=== PATIENT | male | born 1970 | race Caucasian/White ===

== ENCOUNTER → 2022-03-20 17:29 | Outpatient (CLI) | payer OTHER, SELFPAY ==
--- NOTE | ~2022-03-20 | XR_ITS ---
EXAMINATION: XR chest 2V Exam Date/Time: 03/20/2022 17:36 CONDENSER TUBE TENDER HISTORY: R07.81 - Pleurodynia Comparison: None available. RESULT: Lines, tubes, and devices: None. Lungs and pleura: Low lung volumes with crowding. Linear bibasilar atelectasis/scar. Cardiomediastinal silhouette: Unremarkable. Other: No acute osseous or upper abdominal finding. IMPRESSION: No acute cardiopulmonary process. Reviewed, dictated and finalized at location K. ENSER TUBE TENDER
== END ==
PROVIDERS: PCP Physician Assistant; Visit Provider Physician Assistant
DX: R07.81 Pleurodynia (principal)
CPT/HCPCS: 71046

== ENCOUNTER 2022-03-29 09:26 | Outpatient (CLI) | payer OTHER, SELFPAY ==
--- NOTE | ~2022-03-29 | US_ITS ---
US right upper quadrant DATE: 03/29/2022 10:13 INDICATION: Right upper quadrant abdominal pain TECHNIQUE: Real-time imaging of liver, pancreas, gallbladder COMPARISON: None FINDINGS: The pancreas is partially obscured by bowel gas. No hepatic space-occupying mass lesion is detected. Normal hepatopedal portal venous flow direction. There are filling defects of the gallbladder neck with posterior shadowing consistent with cholelithi asis. There is sludge in the gallbladder. There is prominent thickening of the gallbladder wall up to 1 cm. Findings may be consistent with acute cholecystitis. Positive sonographic Jeff's sign. IMPRESSION: Cholelithiasis and gallbladder wall thickening, positive sonographic Jeff sign, suggest ing acute cholecystitis Dr. Daley telephoned the report on 03/29/2022 1138 hours to [phone] voicemail, with request for r eturn phone call to confirm receipt. Reviewed, dictated and finalized at Location A. Reviewed, dictated and finalized at location B. RETTE VENDOR IMPRESSION: Cholelithiasis and gallbladder wall thickening, positive sonographi c Jeff sign, suggesting acute cholecystitis Dr. Daley telephoned the report on 03/29/2022 1138 hours to [phone] voicema il, with request for return phone call to confirm receipt.
== END 2022-03-29 09:27 | disposition home or self-care (01) ==
PROVIDERS: PCP Family Medicine Adolescent Medicine; Visit Provider Physician Assistant
DX: R10.11 Right upper quadrant pain (principal); K80.20 Calculus of gallbladder without cholecystitis without obstruction
CPT/HCPCS: 76705

== ENCOUNTER 2022-04-27 10:05 | Outpatient (CLI) | payer BC, SELFPAY ==
--- NOTE | 2022-04-27 10:14 | ECG_ITS ---
Measurements Intervals [place] Rate: 81 P: 62 OR: 150 QRS: 18 QRSD: 99 T: 11 QT: 369 QTc: 430 Interpretive Statements SINUS RHYTHM BORDERLINE T WAVE ABNORMALITY- INFERIOR LEADS BASELINE ARTIFACT- I, II, III, AVR, AVL, AVF BORDERLINE ECG NO PREVIOUS ECG AVAILABLE FOR COMPARISON Electronically Signed On 04-27-2022 10:56:54 DIRECTOR COMMUNICATIONS by Tuan Porter D.O.
[2022-04-27 11:33] LABS: Anion Gap 6 mmol/L (8-16); Blood Urea Nitrogen 14 mg/dL (9-20); Calcium 8.7 mg/dL (8.4-10.2); Carbon Dioxide 29 mmol/L (22-30); Chloride 104 mmol/L (98-107); Estimated Glomerular Filt Rate > 60; Glucose 128 mg/dL (65-110); Potassium 4.5 mmol/L (3.4-5.0); Sodium 139 mmol/L (137-145)
[2022-04-27 11:35] LABS: Alanine Aminotransferase 24 U/L (6-50); Albumin Level 4.3 g/dL (3.5-5.1); Alkaline Phosphatase 98 U/L (38-126); Amylase 79 U/L (30-110); Aspartate Amino Transferase 23 U/L (17-59); Bilirubin,Total 0.7 mg/dL (0.2-1.3); Lipase 44 U/L (23-300)
== END 2022-04-27 10:06 | disposition home or self-care (01) ==
LOC: ANHSURGERY 10:08
PROVIDERS: Anesthesiology; PCP Family Medicine Adolescent Medicine; Visit Provider Surgery
DX: K80.00 Calculus of gallbladder with acute cholecystitis without obstruction (principal); E11.9 Type 2 diabetes mellitus without complications; Z01.818 Encounter for other preprocedural examination; R94.31 Abnormal electrocardiogram [ECG] [EKG]
CPT/HCPCS: 36415; 80048; 80076; 82150; 83690; 86850; 86900; 86901; 93005

== ENCOUNTER 2022-05-08 14:51 | Inpatient (IN) | payer BC, SELFPAY ==
[2022-04-26 14:54] VITALS: BMI 35.9
--- NOTE | 2022-04-26 15:00 | PC.NURSE ---
Report to the Outpatient Waiting Room, entrance under the green pavilion located off [facility], at time 10:00 on date 05/08/22. Planned Procedure Time: 12:00. Time changes happen often and if your time is changed the preop area will call you the afternoon before. - You and your visitor will be asked to self-screen and do not enter if you have any COVID symptoms. - Only one visitor is requested with a max of two and NO children visitors are allowed at this time. - The patient visitor may be requested to leave or wait in car when not with patient due to distancing restrictions. - A mask is optional within the hospital. Patients may have clear liquids (water, carbonated beverages, clear teas, apple juice) until 3 hours prior to surgery (9:00) with a maximum of 20 ounces. - No food from midnight until time of surgery Take the following medications with a SIP of water the morning of surgery: NONE Medications to discontinue per physician: MELOXICAM Date to take last dose: PER DR. SHAHID Please no make-up, nail mohawk, hairspray, perfume, deodorant, or body powder the day of surgery. No jewelry (including any body piercings) or valuables the day of surgery, leave them at home. Please take a shower or bath the night before, or the morning of, surgery with an antibacterial soap (HIBICLENS). Wear comfortable, loose fitting clothing. - Jewelry must be removed prior to entering the operating room. Rings and piercings that are not removed may be cut off. - The hospital will not accept responsibility for valuables. - Please leave all valuables, including medications, at home the day of surgery. If you are going home after surgery, a licensed motor bus driver must drive you home. - NO public transportation without another adult if you receive anesthesia. - We recommend that an adult stay with you for 24 hours following discharge. - We also recommend that you do not drive, make important decision, drink alcoholic beverages, or take any drugs that were not prescribed by your health care provider for at least 24 hours after your discharge time. Follow any additional instructions given to you from your surgeon. If you or anyone in your household have experienced Covid symptoms in the past week, please notify your surgeon or the nurse liaison at the phone number below for possible testing. Telephone instructions given to PT - ALFONZO RUVALCABA and asked if any additional questions and then verbalized understanding. Patient advised to call surgeon office or pre surgery nurse liaison [phone] if any additional questions.
[2022-05-08] VITALS (11 sets, daily range): BP systolic 97–153; BP diastolic 53–90; PULSE 58–89; RESP 14–20; TEMP 36.1–37; O2SAT 93–100
[2022-05-08] MEDS: ACETAMINOPHEN 500 MG TABLET 1000 MG PO (10:12)
[2022-05-08] MEDS: INDOCYANINE GREEN 25 MG VIAL 3.75 MG IV PUSH (10:42)
[2022-05-08] MEDS: LACTATED RINGERS 1,000 ML 30 ML IV CONT ×2 (10:43→14:51)
[2022-05-08] MEDS: KETOROLAC 15 MG/ML VIAL (*BKC) IV PUSH (10:45)
[2022-05-08 10:51] LABS: Glucose Point of Care 161 mg/dl (65-105)
--- NOTE | 2022-05-08 11:07 | WPDANESEPPF ---
Anes - Initial Pre Proc Eval Procedure: Operation Date: 05/08/22 12:00 Proposed Procedures p Robotic Assisted Cholecystectomy - Manpreet Vinson DO Date/Time: 05/08/22 11:07 Surgeon: Manpreet Vinson DO Pre Op Diagnosis: acute calculous cholecystitis Patient Data Age: 51 Gender: M Height: 1.83 m Weight: 122.5 kg Last Vital Signs Temp 36.6 C 05/08/22 10:53 Pulse 81 05/08/22 10:53 Resp 16 05/08/22 10:53 BP 142/85 H 05/08/22 10:53 Pulse Ox 97 05/08/22 10:53 O2 Del Method Room Air 05/08/22 10:53 Allergies Allergy/AdvReac Type Severity Reaction Status Date / Time No Known Allergies Allergy Verified 05/08/22 10:07 Home Medications Medication Instructions Recorded Confirmed Type pioglitazone 30 mg tablet 30 mg PO DAILY #90 tabs 11/15/21 04/26/22 Rx empagliflozin 10 mg tablet 10 mg PO DAILY #90 tabs 01/20/22 04/26/22 Rx (Jardiance) meloxicam 15 mg tablet 15 mg PO DAILY #90 tabs 01/20/22 04/26/22 Rx metformin 500 mg tablet,extended 1,000 mg PO BID #360 tabs 02/02/22 04/26/22 Rx release 24 hr atorvastatin 20 mg tablet See Rx Instructions .Route 04/23/22 04/26/22 Rx .COMPLEX #30 tabs Laboratory Tests 05/08/22 10:48 POC Capillary Glucose 161 mg/dl H mg/dl (65-105) Patient hx anesthesia problems: none Family hx anesthesia problems: none Results Review: All pre-operative results and documents have been reviewed as part of the pre-operative evaluation. [facility] Past Medical History Medical History Mixed hyperlipidemia Type 2 diabetes mellitus without complications Surgical History Surgical History H/O wisdom tooth extraction Hx of tonsillectomy Family History Family History Father Throat cancer Mother Scleroderma CAD (coronary artery disease) Unknown Diabetes mellitus Cerebrovascular accident Hypertension Social History Social History Social History: caffeine use: Coke/Pepsi 48/72 oz/day Smoking packs per day: 0.5 Smoking cigarettes per day: 10.0 Years smoked: 4 Smoking pack-years: 2.00 Smoking status: Former smoker Tobacco type: cigarettes Smoking end date: 04/09/88 Alcohol intake: current Alcohol use details: 3/MONTH Substance use: never Substance use type: does not use Living arrangements: with family Additional living arrangements comments: Additional occupation/education comments: [employer] Spiritual care concerns: No Anes - Eval Final PreProcedure Day of Procedure 05/08/22 11:07 Patient weight: obese Heart: regular rate and rhythm Lungs: clear to auscultation Airway: Mallampati scale class III Neurological: alert and oriented Last oral intake: >/= 8 hours ASA classification: III Emergent: no Anesthetic plan: proceed Anesthesia type and monitoring: general ETT and standard monitoring Results Review: All pre-operative results and documents have been reviewed as part of the pre-operative evaluation. Informed Consent: The patient's anesthetic plan and its attendant risks and benefits were discussed with the patient/family/POA. Questions were solicited and answers provided to the satisfaction of the patient/family/POA.
--- NOTE | 2022-05-08 11:32 | WPDHPUPDATE1 ---
History and Physical Update Update Date/Time: 05/08/22 11:32 History and Physical has been reviewed, including an updated exam of the patient. There are NO changes in the patient's condition. Risks, benefits, and alternatives have been discussed and questions answered. Patient agrees to proceed with procedure.
--- NOTE | 2022-05-08 11:32 | PM.IMHP ---
H&P: HPI History of Present Illness Date/Time: 05/08/22 11:32 Chief Complaint: Acute calculous cholecystitis Narrative: 51 yo man presents for robotic assisted laparoscopic cholecystectomy. He denies any changes since last seen in office. Review of Systems Review of Systems: All systems reviewed & are unremarkable except as noted in HPI and below Constitutional: Constitutional: Denies chills, Denies fever(s), Denies headache(s) and Denies weight loss Eyes: Eyes: Denies change in vision ENT: Denies dizziness, Denies headache(s), Denies neck mass and Denies throat swelling Cardiovascular: Cardiovascular: Denies chest pain, Denies lightheadedness and Denies dyspnea Respiratory: Respiratory: Denies cough, Denies dyspnea and Denies wheezing Gastrointestinal: Gastrointestinal: Denies abdominal pain, Denies change in bowel habits, Denies nausea and Denies vomiting Genitourinary: Genitourinary: Denies hematuria and Denies dysuria Musculoskeletal: Musculoskeletal: Reports as per HPI Integumentary/Breasts: Skin/Breast: Reports as per HPI Neurologic: Denies dizziness and Denies headache(s) Allergic/Immunologic: Allergic/Immunologic: Denies throat swelling and Denies wheezing PMFSH Past Medical History Medical History Mixed hyperlipidemia Type 2 diabetes mellitus without complications Surgical History Surgical History H/O wisdom tooth extraction Hx of tonsillectomy Family History Family History Father Throat cancer Mother Scleroderma CAD (coronary artery disease) Unknown Diabetes mellitus Cerebrovascular accident Hypertension Social History Social History Social History: caffeine use: Coke/Pepsi 48/72 oz/day Smoking packs per day: 0.5 Smoking cigarettes per day: 10.0 Years smoked: 4 Smoking pack-years: 2.00 Smoking status: Former smoker Tobacco type: cigarettes Smoking end date: 04/09/88 Alcohol intake: current Alcohol use details: 3/MONTH Substance use: never Substance use type: does not use Living arrangements: with family Additional living arrangements comments: 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 Spiritual care concerns: No Meds Home Medications and Allergies Home Medications Medication Instructions Recorded Confirmed Type pioglitazone 30 mg tablet 30 mg PO DAILY #90 tabs 11/15/21 04/26/22 Rx empagliflozin 10 mg tablet 10 mg PO DAILY #90 tabs 01/20/22 04/26/22 Rx (Jardiance) meloxicam 15 mg tablet 15 mg PO DAILY #90 tabs 01/20/22 04/26/22 Rx metformin 500 mg tablet,extended 1,000 mg PO BID #360 tabs 02/02/22 04/26/22 Rx release 24 hr atorvastatin 20 mg tablet See Rx Instructions .Route 04/23/22 04/26/22 Rx .COMPLEX #30 tabs Allergies Allergy/AdvReac Type Severity Reaction Status Date / Time No Known Allergies Allergy Verified 05/08/22 10:07 Vital Signs Vital Signs - 24 hr 05/08/22 10:53 Temperature 36.6 C Pulse Rate 81 Respiratory Rate 16 Blood Pressure 142/85 H Pulse Oximetry 97 Oxygen Delivery Room Air Exam Const: General: no acute distress and alert Orientation/consciousness: patient oriented x3 HENMT: Head: normocephalic and atraumatic Ears: hearing grossly normal bilaterally Face/Nose/Sinus: Normal nares present Mouth: Yes Normal oral and palatal mucosa present Eyes: Periorbital: periorbital findings normal Sclera: sclerae normal EOM: EOMs intact bilaterally Neck: Neck: normal visual inspection, no lymphadenopathy and trachea midline Chest: Chest palpation & inspection: normal inspection of the chest Resp: Effort & Inspection: normal respiratory effort Auscultation: clear to auscultation bilaterally Cardio: Jugular venous distension: no JVD Rate: regular
[2022-05-08] MEDS: ceFAZolin 3 GM/D5W 100 ML 100 ML IVPB (11:57)
[2022-05-08] MEDS: BUPIVACAINE/EPINEPHRINE 0.5% 10 ML VIAL 30 ML INFILTRATE (12:38)
[2022-05-08] MEDS: metroNIDAZOLE 500 MG/ISO 100ML 500 MG/100 ML BAG 100 MG IVPB (12:48)
--- NOTE | 2022-05-08 15:01 | W.PM.PROC2 ---
Procedure Note - Detailed Date of Procedure 05/08/22 Pre-op Diagnosis acute calculous cholecystitis Post-op Diagnosis Same Procedure Performed Laparoscopic subtotal cholecystectomy, da [place] assisted Surgeon Manpreet Vinson, Anesthesia General and Local (0.5% bupivacaine) Indications This is a 51-year-old man who had presented to his primary care physician's office complaining of right upper quadrant pain that started about 2 months ago. He was experiencing right upper quadrant pain after eating fried food and was also experiencing poor appetite. A gallbladder ultrasound was obtained on 03/29/2022 which showed evidence of cholelithiasis, gallbladder wall thickening, and positive sonographic Jeff sign. I evaluated the patient in my office on 04/04/2022 and most of his symptoms had resolved by that time. Patient had not had any labs drawn yet. I discussed low-fat diet with the patient and discuss further treatment options and decision was made to proceed with robotic assisted laparoscopic cholecystectomy, possible open. Liver enzymes were obtained with his preop labs and all of his liver enzymes were normal. Findings Robotic assisted laparoscopic subtotal cholecystectomy was performed. Upon inspecting the abdomen laparoscopically, there appeared to be significant inflammation around the right lobe of the liver. Were also perihepatic adhesions involving the dome of the liver up to the diaphragm and upper abdominal wall. The omentum was completely adherent up to the inferior edge of the right lobe of the liver making it difficult to even identify the gallbladder initially. I was able to take down some of the omental adhesions and once I was able to identify the gallbladder, this appeared necrotic and very thin walled. The dome of the gallbladder tore with even gentle retraction and purulence fluid was noted to drain from within the gallbladder. Indocyanine green had been given IV in preop and near infrared imaging was used to try to help identify the neck of the gallbladder and cystic duct. There was no uptake of the ICG within the gallbladder lumen making it difficult to identify where the cystic duct and common bile duct were. I was eventually able to identify a tubular structure but this appeared somewhat deep and I could not verify whether this was common bile duct or cystic duct due to the dense inflammation around this area. The neck of the gallbladder was also still somewhat necrotic and tore easily while trying to dissect this area out further. After extensive dissection without conclusively being able to identify the cystic duct, I then chose to perform a subtotal cholecystectomy. The neck of the gallbladder was transected where I could get a window around it safely. There was still too much inflammation around this area to come across it with a stapler or other closure device. I chose to transect this with the hook electrocautery and removed the remainder of the gallbladder. The end of the neck of the gallbladder was left open and bile could be visualized draining from it. I did not identify any stones within the residual neck of the gallbladder. The abdomen was irrigated with about 1 L of sterile saline and decision was made to place a drain near the neck of the gallbladder. Description of Procedure Procedure as well as risks, benefits, and alternatives were discussed with the patient. Written consent was obtained and placed in chart prior to procedure. 1.5 mL of indocyanine green was given intravenously in preop. Patient was brought back to surgical suite. He was placed supine on operating table. Time-out was done to confirm patient and procedure. He was then intubated by the anesthesia department. His abdomen was then prepped and draped in sterile fashion using chlorhexidine prep. 0.5% bupivacaine was infiltrated locally at the site of each port placement. An 8 mm incision was made just superior to the umbilicus and a 5 mm Optivi
[2022-05-08 15:28] LABS: Glucose Point of Care 213 mg/dl (65-105)
[2022-05-08] MEDS: LACTATED RINGERS 1,000 ML 100 ML IV CONT (15:53)
--- NOTE | 2022-05-08 15:59 | ADMGEN ---
This patient, Valentin Roberts, was admitted to Medical Room 240-. Patient/family oriented to hospital policies and general routines including ID bracelet, bed and alarms, visiting hours, pain management, procedures, bathroom and other care routines, personal items, smoking policy, room service/diet, and visiting hours. Information on how to activate the Rapid Response Team has been discussed. Patient/Family are encouraged to report perceived risks to care and to ask questions if they do not understand what they are told or what they should do.
[2022-05-08] MEDS: HYDROcodone/acetaminophen (*CRX) 5-325 MG TABLET 1 TAB PO ×2 (16:19→20:55)
--- NOTE | 2022-05-08 16:36 | PCCCNOTE ---
Inpatient order noted, called to office and to follow if inpatient or OPER as unexpected admit. Message taken by office to get in contact with Dr. Vinson if should be OPER for tonight or if anticipates 2 midnights and keep IP. Phone call received from Dr. Karel Umana is in surgery but anticipates a 2 night stay but if it needs to be OPER we can change. Discussion w/ Vending Machine Refiller. Moe Grewal, will keep inpatient.
[2022-05-08 17:26] LABS: Glucose Point of Care 175 mg/dl (65-105)
[2022-05-08] MEDS: metFORMIN HCL XR 500 MG TAB.SR.24H 1000 MG PO (17:36)
[2022-05-08 22:25] LABS: Glucose Point of Care 245 mg/dl (65-105)
[2022-05-09 03:10] VITALS: BP 141/85; PULSE 94; RESP 20; TEMP 36.8; O2SAT 92
[2022-05-09 05:47] LABS: Hematocrit 43.6 % (42.0-52.0); Hemoglobin 14.1 g/dL (14.0-18.0); Mean Corpuscular HGB Conc 32.3 g/dl (32-36); Mean Corpuscular Hemoglobin 28.8 pg (26-34); Mean Platelet Volume 11.2 fl (7.4-10.4); Platelet Count Result 222 k/mm3 (150-375)
[2022-05-09 05:57] LABS: Alanine Aminotransferase 38 U/L (6-50); Albumin Level 3.5 g/dL (3.5-5.1); Alkaline Phosphatase 79 U/L (38-126); Anion Gap 6 mmol/L (8-16); Aspartate Amino Transferase 44 U/L (17-59); Blood Urea Nitrogen 11 mg/dL (9-20); Calcium 8.1 mg/dL (8.4-10.2); Carbon Dioxide 30 mmol/L (22-30); Chloride 99 mmol/L (98-107); Estimated CRCL calculation 113 ml/min; Estimated Glomerular Filt Rate > 60; Glucose 195 mg/dL (65-110); Sodium 135 mmol/L (137-145)
[2022-05-09 08:49] LABS: Glucose Point of Care 183 mg/dl (65-105)
[2022-05-09] MEDS: PIOGLITAZONE HCL 30 MG TABLET PO (08:56)
[2022-05-09] MEDS: metFORMIN HCL XR 500 MG TAB.SR.24H 1000 MG PO ×2 (08:56→17:13)
[2022-05-09] MEDS: ENOXAPARIN 40 MG/0.4 ML SYRINGE SUB-Q (08:56)
--- NOTE | 2022-05-09 09:41 | WPDANESPN ---
Anes - Prog Note Post-Op Date/Time: 05/09/22 09:41 Cardiovascular status: normal Respiratory status: normal Airway patency: baseline Mental status: baseline Post-Op hydration status: normal Vital Signs: Last Vital Signs Temp 36.8 C 05/09/22 03:10 Pulse 94 05/09/22 03:10 Resp 20 05/09/22 03:10 BP 141/85 H 05/09/22 03:10 Pulse Ox 92 05/09/22 03:10 O2 Del Method Room Air 05/08/22 20:45 O2 Flow Rate 6 05/08/22 15:05 Pain Score (VAS): 06/16 I/O: Intake & Output 05/08/22 05/09/22 05/09/22 23:59 07:59 15:59 Intake Total 610 540 Output Total 720 1485 Balance -110 -945 Laboratory Tests 05/09/22 05:05 05/09/22 05:05 05/08/22 05/08/22 05/08/22 10:48 15:00 17:03 WBC RBC Hgb Hct MCV MCH MCHC RDW Plt Count MPV Sodium Potassium Chloride Carbon Dioxide Anion Gap BUN Creatinine Estim Creat Clear Calc Estimated GFR Glucose POC Capillary Glucose 161 H 213 H 175 H Calcium Total Bilirubin AST ALT Alkaline Phosphatase Total Protein Albumin 05/08/22 05/09/22 05/09/22 20:59 05:05 05:05 WBC 14.0 H RBC 4.90 Hgb 14.1 Hct 43.6 MCV 89.0 MCH 28.8 MCHC 32.3 RDW 14.0 Plt Count 222 MPV 11.2 H Sodium 135 L Potassium 4.0 Chloride 99 Carbon Dioxide 30 Anion Gap 6 L BUN 11 Creatinine 0.90 Estim Creat Clear Calc 113 Estimated GFR > 60 Glucose 195 H POC Capillary Glucose 245 H Calcium 8.1 L Total Bilirubin 1.0 AST 44 ALT 38 Alkaline Phosphatase 79 Total Protein 6.0 L Albumin 3.5 05/09/22 08:34 WBC RBC Hgb Hct MCV MCH MCHC RDW Plt Count MPV Sodium Potassium Chloride Carbon Dioxide Anion Gap BUN Creatinine Estim Creat Clear Calc Estimated GFR Glucose POC Capillary Glucose 183 H Calcium Total Bilirubin AST ALT Alkaline Phosphatase Total Protein Albumin Post-procedural complaints: none Patient Feedback: Patient satisfied with anesthetic care.
[2022-05-09 10:00] VITALS: BP 133/85; PULSE 97; RESP 20; TEMP 37.1; O2SAT 98
[2022-05-09] MEDS: HYDROcodone/acetaminophen (*CRX) 5-325 MG TABLET 1 TAB PO (12:01)
[2022-05-09 12:32] LABS: Glucose Point of Care 289 mg/dl (65-105)
--- NOTE | 2022-05-09 13:54 | PM.PNGS ---
Progress Note: A&P Assessment and Plan (1) Acute calculous cholecystitis: Code(s): K80.00 - Calculus of gallbladder with acute cholecystitis without obstruction Status: Acute Assessment and Plan: WBC slightly elevated but afebrile today. Continue Zosyn. Drain was bilious last night but showing minimal if any bile now. Looks mostly serosanguinous. Continue monitoring drain output and repeat labs in AM. Possibly home tomorrow. (2) Type 2 diabetes mellitus without complications: Code(s): E11.9 - Type 2 diabetes mellitus without complications Status: Acute Assessment and Plan: Home meds restarted Will add diabetic diet to his orders. Subjective Subjective Date/Time Seen: 05/09/22 13:54 Interval history: Pain controlled. No fevers. Tolerating low fat diet. Drain is looking less bilious. Exam Resp: Effort & Inspection: normal respiratory effort Auscultation: clear to auscultation bilaterally Cardio: Rate: regular rate Rhythm: regular rhythm GI: Inspection: incision (intact with glue) and other (FELICIA mostly serosanguinous) GI Palp: Yes Soft to palpation, Yes Tenderness to palpation present (GI) (incisional) and No Guarding due to palpation present (GI) Objective Data Vital Signs Vital Signs: Vital Signs - 24 hr 05/08/22 14:51 05/08/22 15:15 05/08/22 15:20 Temperature 36.1 C L Pulse Rate 59 L 69 Respiratory Rate 14 18 Blood Pressure 97/53 L 117/75 Pulse Oximetry 100 98 Oxygen Delivery Simple Face Mask Room Air Room Air Oxygen Flow Rate 6 05/08/22 15:35 05/08/22 15:05 05/08/22 16:00 Temperature 36.4 C L Pulse Rate 73 58 L 62 Respiratory Rate 18 16 16 Blood Pressure 125/80 101/59 L 129/75 Pulse Oximetry 97 100 97 Oxygen Delivery Room Air Simple Face Mask Oxygen Flow Rate 6 05/08/22 16:15 05/08/22 16:45 05/08/22 17:45 Temperature 36.6 C 36.4 C L 36.6 C Pulse Rate 67 68 78 Respiratory Rate 16 17 17 Blood Pressure 137/80 153/90 H 128/86 Pulse Oximetry 97 97 97 Oxygen Delivery Oxygen Flow Rate 05/08/22 20:10 05/08/22 20:45 05/08/22 23:50 Temperature 36.3 C L 37.0 C Pulse Rate 80 89 Respiratory Rate 20 20 Blood Pressure 153/88 H 142/82 H Pulse Oximetry 98 93 Oxygen Delivery Room Air Oxygen Flow Rate 05/09/22 03:10 05/09/22 10:00 Temperature 36.8 C 37.1 C Pulse Rate 94 97 Respiratory Rate 20 20 Blood Pressure 141/85 H 133/85 Pulse Oximetry 92 98 Oxygen Delivery Oxygen Flow Rate Intake/Output Intake/Output: Intake & Output 05/06/22 05/07/22 05/08/22 05/09/22 23:59 23:59 23:59 23:59 Intake Total 1310 1502 Output Total 770 1535 Balance 540 -33 Meds/Results Medications: Active Medications Generic Name Dose Route Start Last Admin Trade Name Freq PRN Reason Stop Dose Admin Hydrocodone Bitart/Acetaminophen 1 tab 05/08/22 14:56 05/09/22 12:01 Hydrocodone/Acetaminophen (*Crx) 5-325 Mg Tablet PO 1 tab Q4H PRN Administration Pain Rated 4-6 Hydrocodone Bitart/Acetaminophen 1 tab 05/08/22 14:56 Hydrocodone/Acetaminophen (*Crx) 10-325 Mg Tablet PO Q6H PRN Pain Rated 7-10 Empagliflozin 10 mg 05/09/22 13:55 Empagliflozin 10 Mg Tablet PO DAILY CHAI Enoxaparin Sodium 40 mg 05/09/22 09:00 05/09/22 08:56 Enoxaparin 40 Mg/0.4 Ml Syringe SUB-Q 40 mg DAILY CHAI Administration Piperacillin/Tazobactam/Dextrose 3.375 gm in 50 mls @ 100 mls/hr 05/08/22 17:00 05/09/22 12:00 Zosyn 3.375 Gm/D5w 50ml Pm IVPB 100 mls/hr Q6H CHAI Administration Ibuprofen 600 mg 05/08/22 14:56 Ibuprofen 600 Mg Tablet PO Q6H PRN Pain Rated 1-3 Metformin HCl 1,000 mg 05/08/22 17:00 05/09/22 08:56 Metformin Hcl Xr 500 Mg Tab.Sr.24h PO 1,000 mg BID CHAI Administration Morphine Sulfate 2 mg 05/08/22 14:51 Morphine Sulfate (*Crx) 2 Mg/Ml Inj IV PUSH Q2H PRN Pain Rated 4-6 Morphine Sulfate 4 mg 05/08/22 14:51 Morphine Tinajero
[2022-05-09 14:00] VITALS: BP 130/82; PULSE 96; RESP 20; TEMP 36.8; O2SAT 98
[2022-05-09] MEDS: EMPAGLIFLOZIN 10 MG TABLET PO (15:18)
[2022-05-09 17:25] LABS: Glucose Point of Care 148 mg/dl (65-105)
[2022-05-09 18:00] VITALS: BP 128/78; PULSE 97; RESP 20; TEMP 36.7; O2SAT 98
[2022-05-09 19:47] VITALS: BP 142/87; PULSE 94; RESP 20; TEMP 36.9; O2SAT 94
[2022-05-09] MEDS: IBUPROFEN 600 MG TABLET PO (20:37)
[2022-05-09 23:05] LABS: Glucose Point of Care 127 mg/dl (65-105)
[2022-05-10 03:22] VITALS: BP 140/86; PULSE 83; RESP 20; TEMP 36.2; O2SAT 94
[2022-05-10 05:22] LABS: Hematocrit 42.3 % (42.0-52.0); Hemoglobin 13.4 g/dL (14.0-18.0); Mean Corpuscular HGB Conc 31.7 g/dl (32-36); Mean Corpuscular Hemoglobin 28.2 pg (26-34); Mean Corpuscular Volume 88.9 fl (80-100); Mean Platelet Volume 11.5 fl (7.4-10.4); Platelet Count Result 209 k/mm3 (150-375); Red Blood Count 4.76 M/mm3 (4.6-6.20); Red Cell Distribution Width 14.1 % (11.5-14.5); White Blood Count 11.6 K/mm3 (4.5-10.0)
[2022-05-10 05:36] LABS: Alanine Aminotransferase 37 U/L (6-50); Albumin Level 3.5 g/dL (3.5-5.1); Alkaline Phosphatase 79 U/L (38-126); Anion Gap 6 mmol/L (8-16); Aspartate Amino Transferase 35 U/L (17-59); Bilirubin,Total 1.4 mg/dL (0.2-1.3); Blood Urea Nitrogen 10 mg/dL (9-20); Calcium 8.3 mg/dL (8.4-10.2); Carbon Dioxide 30 mmol/L (22-30); Chloride 100 mmol/L (98-107); Estimated CRCL calculation 102 ml/min; Estimated Glomerular Filt Rate > 60; Glucose 121 mg/dL (65-110); Potassium 3.9 mmol/L (3.4-5.0); Sodium 136 mmol/L (137-145)
[2022-05-10 08:51] LABS: Glucose Point of Care 114 mg/dl (65-105)
--- NOTE | 2022-05-10 10:44 | PM.DS ---
DS: Admitting Diagnosis Discharge Date 05/10/2022 Admitting Diagnosis acute calculous cholecystitis, type 2 diabetes DS: Discharge Diagnosis Discharge Diagnosis (1) Acute calculous cholecystitis: Code(s): K80.00 - Calculus of gallbladder with acute cholecystitis without obstruction Status: Acute (2) Type 2 diabetes mellitus without complications: Code(s): E11.9 - Type 2 diabetes mellitus without complications Status: Acute DS: Summary Hospital Course Reason for hospitalization: acute calculous cholecystitis Hospital Course: This is a 51-year-old man who presented for laparoscopic cholecystectomy, de Yesenia assisted on 05/08/2022. He had experienced right upper quadrant pain about 2 months ago and gallbladder ultrasound had been performed on 03/29/2022 showing evidence of acute calculous cholecystitis. His symptoms resolved with dietary modification and he was able to be scheduled for outpatient cholecystectomy. Upon entering the abdomen laparoscopically, there did appear to be still significant inflammation and adhesions around the gallbladder. The gallbladder wall appeared necrotic and there was purulence fluid within the lumen of the gallbladder. A robotic subtotal cholecystectomy was performed and a small remnant of the gallbladder neck was left in place. A drain was placed at the opening of the gallbladder neck to prevent biloma from forming. Due to the significant amount of necrosis and infection the patient was admitted to the hospital postoperatively for continued IV antibiotics and further monitoring. He was placed on Zosyn and IV fluids. His diet and activity were gradually advanced as tolerated. The drain output appeared bilious initially after the surgery, but by postop day 1 drain output was looking mostly serosanguineous. He had a slightly elevated white blood count but was remaining afebrile. He was advanced to a low-fat diet and was tolerating this well. On postop day 2 his white blood count was decreasing close to normal. His bilirubin was slightly elevated at 1.4 but remainder of liver enzymes were normal. He was tolerating the low-fat diet and drain output appeared serosanguineous. Decision was made to discharge patient with the drain in place. Patient was instructed on drain care and will be keeping a record drain output at home. An appointment will be made for the patient to follow-up in the office on 05/15/2022 for drain removal. Will arrange for liver enzymes to be drawn prior to the appointment to determine if any further imaging needs to be obtained to assess for bile leak. Patient was discharged on 05/10/2022. Status at Discharge Functional status at discharge: independent ambulation Overall status at discharge: patient is progressing back to baseline Time Spent with Patient Time attestation: Total time spent providing and/or coordinating discharge services: Time spent: Less than 30 minutes Exam Const: General: cooperative and no acute distress Orientation/consciousness: patient oriented x3 Resp: Effort & Inspection: normal respiratory effort Auscultation: clear to auscultation bilaterally Cardio: Rate: regular rate Rhythm: regular rhythm GI: Inspection: incision ( intact with glue) and other ( FELICIA drain serosanguineous) GI Palp: Yes Soft to palpation, No Tenderness to palpation present (GI) and No Guarding due to palpation present (GI) DS: Data Data Completed and Pending Pending studies at discharge: Pending at discharge 05/08/22 14:04 Surgical [PTH] Routine Labs on day of discharge: Labs from last 24 hours 05/10/22 05/10/22 05/10/22 08:35 04:40 04:40 WBC 11.6 H RBC 4.76 Hgb 13.4 L Hct 42.3 MCV 88.9 MCH 28.2 MCHC 31.7 L RDW 14.1 Plt Count 209 MPV 11.5 H Sodium 136 L Potassium 3.9 Chloride 100 Carbon Dioxide 30 Anion Gap 6 L BUN 10 Creatinine 1.00 Estim Creat Clear Calc 102 Estimated
[2022-05-10] MEDS: ENOXAPARIN 40 MG/0.4 ML SYRINGE SUB-Q (10:46)
[2022-05-10] MEDS: EMPAGLIFLOZIN 10 MG TABLET PO (10:46)
[2022-05-10] MEDS: metFORMIN HCL XR 500 MG TAB.SR.24H 1000 MG PO (10:46)
[2022-05-10] MEDS: PIOGLITAZONE HCL 30 MG TABLET PO (10:47)
== END 2022-05-10 12:34 | disposition home or self-care (01) | DRG 419 ==
LOC: ANH2MED 15:38
PROVIDERS: Admitting Provider Surgery; PCP Family Medicine Adolescent Medicine; Visit Provider Surgery
PROC: 0FT44ZZ Resection of Gallbladder, Percutaneous Endoscopic Approach (ICD-10-PCS; CPT 47562; principal; 2022-05-08 12:00)
DX: K80.00 Calculus of gallbladder with acute cholecystitis without obstruction (principal); E11.9 Type 2 diabetes mellitus without complications; E78.2 Mixed hyperlipidemia; E66.9 Obesity, unspecified; Z68.36 Body mass index [BMI] 36.0-36.9, adult; Z87.891 Personal history of nicotine dependence
CPT/HCPCS: 36415; 80053; 82948; 85027; 88304; A9270; J0690; J1650; J1885; J2250; J2405; J2543; J2704; J2710; J3010; J7120

== ENCOUNTER 2022-05-15 13:29 | Outpatient (CLI) | payer BC, SELFPAY ==
[2022-05-15 15:37] LABS: Alanine Aminotransferase 61 U/L (6-50); Albumin Level 3.8 g/dL (3.5-5.1); Alkaline Phosphatase 81 U/L (38-126); Aspartate Amino Transferase 61 U/L (17-59); Bilirubin,Total 0.5 mg/dL (0.2-1.3)
== END 2022-05-15 13:30 | disposition home or self-care (01) ==
PROVIDERS: PCP Family Medicine Adolescent Medicine; Visit Provider Surgery
DX: K80.00 Calculus of gallbladder with acute cholecystitis without obstruction (principal)
CPT/HCPCS: 36415; 80076